=== PATIENT | female | born 2000 | race Caucasian/White ===

== ENCOUNTER 2021-09-25 21:01 | Emergency (ER) | payer OTHER ==
[~2021-09-25] VITALS: Ht 167.6 cm; Wt 54.5 kg
[2021-09-25 21:23] VITALS: BP 114/83
--- NOTE | 2021-09-25 21:39 | PHYS DOC ---
Past History Past Surgical History: No Surgical History Adult General Chief Complaint Chief Complaint: PAIN CONTROL HPI HPI Patient is a 21-year-old female, in the who presents with left hip and leg pain, 5 out of 10, dull and achy ears been going on for about 2 months. States that 2 months or so ago may be a little longer she says she was training, and got kicked and had a stress fracture in her left femur. States that since then she has had aching pains. [place] so she came to the emergency department. States he had not taken any medications. Denies any other traumas. States he is eating and drinking normally for her. States he is making urine and stool normally for her. Denies any numbness/weakness/tingling. States she is able to sit, stand and walk but causes discomfort when she does walk and wants crutches. Review of Systems Review of Systems Review of systems otherwise unremarkable except noted in HPI Allergies Allergies Allergies Coded Allergies Type Severity Reaction Last Updated Verified No Known Drug Allergies 09/25/21 No Physical Exam Physical Exam Constitutional: Well developed, well nourished, no acute distress, non-toxic appearance. [] HENT: Normocephalic, atraumatic, Neck: Normal range of motion, no tenderness, supple, no stridor. [] Cardiovascular:Heart rate regular rhythm, no murmur [] Lungs & Thorax: Bilateral breath sounds clear to auscultation [] Skin: Warm, dry, no erythema, no rash. [] Back: No tenderness, Extremities: No tenderness, no cyanosis, no clubbing, ROM intact, no edema. [] Neurologic: Alert and oriented X 3, normal motor function, normal sensory function, able to sit, stand and walk without issue no focal deficits noted. [] Psychologic: Affect normal, judgement normal, mood normal. [] Current Patient Data Vital Signs Vital Signs Date Time Temp Pulse Resp B/P (MAP) Pulse Ox O2 Delivery O2 Flow Rate FiO2 09/25/21 21:23 97.7 81 18 114/83 (93) 97 Room Air EKG EKG [] Radiology/Procedures Radiology/Procedures [] Heart Score C/O Chest Pain: No Risk Factors: Risk Factors: DM, Current or recent (<one month) smoker, HTN, HLP, family histo ry of CAD, obesity. Risk Scores: Risk Factors: DM, Current or recent (<one month) smoker, HTN, HLP, family history of CAD, obesity. Course & Med Decision Making Course & Med Decision Making Patient is a 21-year-old female presents with left hip pain Vital signs nonconcerning. Physical exam noted above. Given Tylenol and ibu profen. Imaging with no acute osseous abnormalities. Placed in knee immobilizer and gave crutches and advised on nonweightbearing ambulation until seen by primary care physician and orthopedic surgeon. Advised on symptom control at home. Advised follow-up on Tuesday with primary care physician and her orthopedic surgeon to update on ED visit and set up an appointment. Gave return precautions to the ED. Patient grateful, verbalized understanding and agreed with plan of discharge. [] Dragon Disclaimer Dragon Disclaimer This electronic medical record was generated, in whole or in part, using a voice recognition dictation system. Departure Departure: Impression: Primary Impression: Leg pain Additional Impression: Hip pain Disposition: HOME / SELF CARE / HOMELESS Condition: GOOD Referrals: BERKLEY ESQUIVEL DO (PCP) Patient Instructions: RICE - Routine Care for Injuries Additional Instructions: Thank you for coming into the emergency department tonight and allowing us to take care of you. Please read the attached information carefully to go over things we discussed. You can continue a Tylenol, ibuprofen, Benadryl and ice regimen as needed. Please use your knee immobilizer and crutches as we discussed and do not bear weight on your left leg until you see your primary care physician and your orthopedic surgeon for reevaluation and need for MRI. Please call them both on Tuesday to update on ED visit and set up a follow-up for soon as possible. Please come back with new or concerning symptoms as discussed. Problem Qualifiers BARBARA HUITRON MD Sep 25, 2021 21:39
[2021-09-25] MEDS ORDERED: ACETAMINOPHEN 500 MG TABLET PO ONE (21:45)
[2021-09-25] MEDS ORDERED: IBUPROFEN 600 MG TABLET. PO ONE (21:45)
--- NOTE | 2021-09-25 23:04 | RAD ---
Exam: Left femur 2 views. Pelvis with right hip 2 views INDICATION: Left hip pain TECHNIQUE: Frontal and lateral views the left femur. Frontal view of the pelvis with frontal and frog -leg lateral views of the left hip Comparisons: None FINDINGS: Femur: Bone mineralization is normal. No acute or healed fractures. Soft tissues are unremarkable. Joint spa millicent are well-maintained. Pelvis: Bone mineralization is normal. No acute or healed fractures. Soft tissues are unremarkable. Joint spa millicent are well-maintained. IMPRESSION: 1. No acute osseous abnormality of the left hip. 2. No acute osseous abnormality of the left femur. Electronically signed by: Rosa Kaufman MD (09/25/2021 11:02 PM) NATHAN
== END 2021-09-25 23:00 | disposition home or self-care (01) ==
LOC: ER 21:01
DX: M25.552 Pain in left hip (principal); M79.605 Pain in left leg
CPT/HCPCS: 29505; 73502; 73552; 81025; 99284

== ENCOUNTER 2021-12-06 14:28 | Emergency (ER) | payer OTHER ==
[~2021-12-06] VITALS: Ht 167.6 cm; Wt 54.5 kg
[2021-12-06 14:28] VITALS: BP 114/83
[2021-12-06] MEDS ORDERED: IBUPROFEN 600 MG TABLET. PO ONE (14:45)
[2021-12-06] MEDS ORDERED: HYDROcodone/APAP 5/325MG 1 TAB TABLET PO ONE (15:15)
--- NOTE | 2021-12-06 15:17 | PHYS DOC ---
Past History Past Surgical History: No Surgical History (DARIN DOZIER APRN) General Adult EDM: Chief Complaint: HIP PAIN HPI: HPI: Patient is a 21-year-old female presents with left hip and left knee pain. Patient states been a chronic issue and started back in July. Patient reports originally injuring herself while training for the . Patient states that she just recently started physical therapy ordered by her primary care doctor. Patient states that pain is gotten worse. Patient denies taking anything at home for pain or being prescribed any medication to help with discomfort. Patient is currently using a knee brace. Denies numbness, tingling, weakness. Denies all other medical history. (DARIN DOZIER APRN) Review of Systems: Review of Systems: ROS At least 10 ROS systems have been reviewed and are negative except as documented in the HPI. General: Negative except as outlined in HPI above. Skin: Negative except as outlined in HPI above. HEENT: Negative except as outlined in HPI above. Neck: Negative except as outlined in HPI above. Respiratory: Negative except as outlined in HPI above.. Cardiovascular: Negative except as outlined in HPI above. Abdomen: Negative except as outlined in HPI above. : Negative except as outlined in HPI above. Back/MSK: Negative except as outlined in HPI above. Neuro: Negative except as outlined in HPI above. Psych: Negative except as outlined in HPI above. (DARIN DOZIER APRN) Current Medications: Current Meds: Current Medications Medications (Trade) Dose Ordered Sig/Bety Start Time Stop Time Status Last Admin Dose Admin Ibuprofen (Motrin) 600 mg 1X ONCE 12/06/21 14:45 12/06/21 14:46 UNV 12/06/21 15:09 600 MG (DARIN DOZIER APRN) Allergies: Allergies: Allergies Coded Allergies Type Severity Reaction Last Updated Verified No Known Drug Allergies 09/25/21 No (DARIN DOZIER APRN) Physical Exam: PE: Constitutional: Well developed, well nourished, no acute distress, non-toxic appearance. [] HENT: Normocephalic, atraumatic, bilateral external ears normal, oropharynx moist, no oral exudates, nose normal. [] Eyes: PERRLA, EOMI, conjunctiva normal, no discharge. [] Neck: Normal range of motion, no tenderness, supple, no stridor. [] Cardiovascular:Heart rate regular rhythm, no murmur [] Lungs & Thorax: Bilateral breath sounds clear to auscultation [] Abdomen: Bowel sounds normal, soft, no tenderness, no masses, no pulsatile masses. [] Skin: Warm, dry, no erythema, no rash. [] Back: No tenderness, no CVA tenderness. [] Extremities: Left knee and hip pain, ROM intact, no edema, able to bear weight Neurologic: Alert and oriented X 3, normal motor function, normal sensory function, no focal deficits noted. [] Psychologic: Affect normal, judgement normal, mood normal. [] (DARIN DOZIER APRN) EKG: EKG: [] (DARIN DOZIER APRN) Radiology/Procedures: Radiology/Procedures: []Two-view left hip dated 12/06/2021. COMPARISON: 09/25/2021 INDICATION: Pain. FINDINGS: 2 views left hip show normal bony alignment. No displaced fracture. No periostitis or bone destruction. No acute osseous or articular abnormality. IMPRESSION: No acute findings. Electronically signed by: Bc Romero MD (12/06/2021 4:01 PM) [id number] 4 view left knee dated 12/06/2021. COMPARISON: None. INDICATION: Pain. FINDINGS: 4 views of left knee show normal bony alignment. No displaced fracture. No apparent joint effusion or loose body. No periostitis or bone destruction. IMPRESSION: No acute findings. Electronically signed by: Bc Romero MD (12/06/2021 4:00 PM) [id number] (DARIN DOZIER APRN) Heart Score: C/O Chest Pain: No Risk Factors: Risk Factors: DM, Current or recent (<one month) smoker, HTN, HLP, family history of CAD, obesity. Risk Scores: Score 0 - 3: 2.5% MACE over next 6 weeks - Discharge Home Score 4 - 6: 20.3% MACE over next 6 weeks - Admit for Clinical Observation Score 7 - 10: 72.7% MACE over next 6 weeks - Early Invasive Strategies (DARNI DOZIER APRN) Course & Med Decision Making: Course & Med Decision Making Pertinent Labs and Imaging studies reviewed. (See chart for details) 20-year-old for presents with left hip and left knee pain. Patient denies new injury. Patient given hydrocodone while in the ER. X-ray of knee and hip ordered. Left hip and left knee x-ray are both unremarkable. No acute findings. Advised patient to continue with PT and follow-up with PCP for further management. Ibuprofen at home for discomfort. (DARIN DOZIER APRN) Dragon Disclaimer: Dragon Disclaimer: This electronic medical record was generated, in whole or in part, using a voice recognition dictation system. (DARIN DOZIER APRN) Attending Co-Sign The patient was seen and interviewed as well as examined at the bedside. The chart was reviewed. The case was discussed. Agree with the plan of care. (YESSICA BAY DO) Departure Departure: Impression: Primary Impression: Left knee pain Qualified Codes: M25.562 - Pain in left knee Additional Impression: Left hip pain Disposition: HOME / SELF CARE / HOMELESS Condition: STABLE Referrals: BERKLEY ESQUIVEL DO (PCP) Patient Instructions: Knee Pain, [id number] Additional Instructions: You were seen in the emergency room for left knee and hip pain. X-ray was performed which is unremarkable. Continue doing physical therapy which was prescribed by your primary care physician. Take ibuprofen and Tylenol at home if you have pain. Follow-up with your PCP or return to the emergency with worsening symptoms or concerns. EMERGENCY DEPARTMENT GENERAL DISCHARGE INSTRUCTIONS Thank you for coming to [facility] (ED) today and trusting us with you care. We trust that you had a positivie experience in our Emergency Department. If you wish to speak to the department management, you may call the director at . YOUR FOLLOW UP INSTRUCTIONS ARE FOLLOWS: 1. Do you have a private Doctor? If you do not have a private doctor, please ask for a resource list of physicians or clinics that may be able to assist you with follow up care. 2. The Emergency Physician has interpreted your x-rays. The X-Ray specialist will also review them. If there is a change in the findings, you will be notified in 48 hours when at all possible. 3. A lab test or culture has been done, your results will be reviewed and you will be notified if you need a change in treatment. ADDITIONAL INSTRUCTIONS AND INFORMATION: 1. Your care today has been supervised by a physician who is specially trained in emergency care. Many problems require more than one evaluation for a complete diagnosis and treatment. We recommend that you schedule your follow up appointment as recommended to ensure complete treatment of you illness or injury. If you are unable to obtain follow up care and continue to have a problem, or if your condition worsens, we recommend that you return to the ED. 2. We are not able to safely determine your condition over the phone nor are we able to give sound medical advice over the phone. For these safety reasons, if you call for medical advice we will ask you to come to the ED for further evaluation. 3. If you have any questions regarding these discharge instructions please call the ED at [phone]. SAFETY INFORMATION: In the interest of safety, wellness, and injury prevention; we encourage you to wear your sealbelt, if you smoke; quite smoking, and we encourage family to use a protective helmet for bicycling and other sporting events that present an increased risk for head injury. IF YOUR SYMPTOMS WORSEN OR NEW SYMPTOMS DEVELOP, OR YOU HAVE CONCERNS ABOUT YOUR CONDITION; OR IF YOUR CONDITION WORSENS WHILE YOU ARE WAITING FOR YOUR FOLLOW UP APPOINTMENT; EITHER CONTACT YOUR PRIMARY CARE DOCTOR, THE PHYSICIAN WHOSE NAME AND NUMBER YOU WERE GIVEN, OR RETURN TO THE ED IMMEDIATELY. DARIN DOZIER APRN Dec 06, 2021 15:17 YESSICA BAY DO Dec 09, 2021 10:23
--- NOTE | 2021-12-06 16:02 | RAD ---
4 view left knee dated 12/06/2021. COMPARISON: None. INDICATION: Pain. FINDINGS: 4 views of left knee show normal bony alignment. No displaced fracture. No apparent joint effusion or loose body. No periostitis or bone destruction. IMPRESSION: No acute findings. Electronically signed by: Bc Romero MD (12/06/2021 4:00 PM) [id number]
--- NOTE | 2021-12-06 16:03 | RAD ---
Two-view left hip dated 12/06/2021. COMPARISON: 09/25/2021 INDICATION: Pain. FINDINGS: 2 views left hip show normal bony alignment. No displaced fracture. No periostitis or bone destructio n. No acute osseous or articular abnormality. IMPRESSION: No acute findings. Electronically signed by: Bc Romero MD (12/06/2021 4:01 PM) [id number]
== END 2021-12-06 17:09 | disposition home or self-care (01) ==
LOC: ER 14:28
DX: M25.552 Pain in left hip (principal); M25.562 Pain in left knee
CPT/HCPCS: 73502; 73564; 81025; 99284